=== PATIENT | male | born 1950 | race Two or more races ===

== ENCOUNTER → 2016-10-02 | Day surgery (SDC) | payer BC ==
[~2016-10-02] MED LIST: ASPIRIN81 M2 PO; CRESTOR5 MG PO; OMEPRAZOLE20 M1 PO; ZESTRIL10 M1 PO
--- NOTE | ~2016-10-02 | OR ---
Unit #: [id number] #: [id number] Patient: JOHNNY WALL [id number] [address] [place], [place] [address] [id number] O MR#: [id number] NAME: JOHNNY WALL ROOM: Date of Procedure: 10/02/2016 Admission Date: 10/02/2016 Surgeon: Terrence Aldrich M.D. : 1950 Attending Physician: Terrence Aldrich M.D. OPERATIVE REPORT PRIMARY CARE PHYSICIAN Jessica Galloway M.D. PREOPERATIVE DIAGNOSIS Colorectal cancer screening in an average-risk patient. PROCEDURES PERFORMED Colonoscopy and biopsy. POSTOPERATIVE DIAGNOSES 1. Single sessile polyp in the mid transverse colon. This was removed using cold biopsy forceps. It was about 4 to 5 mm in size. 2. Rest of the examination up to cecum and terminal ileum was normal. The quality of the prep was excellent. RECOMMENDATIONS Follow up the results of polyp histology and consider repeat colonoscopy in 5 years. SEDATION USED MAC. DESCRIPTION OF PROCEDURE Following detailed explanation of the potential risks and complications of a colonoscopy, namely perforation, bleeding, and complications related to sedation, the patient was brought to GI lab and laid in the left lateral decubitus position. A digital rectal examination was performed which was normal. Lubricated tip of the Olympus video colonoscope was inserted through the anus and advanced under direct vision. The scope was advanced past rectosigmoid into descending colon. No diverticula were noticed in this area. The scope tip was then navigated all the way up to cecum with visualization of the ileocecal valve and the appendiceal orifice. Preparation was excellent with good visualization and photodocumentation was obtained. Last few inches of the terminal ileum were also visualized after intubation of the ileocecal valve and appeared normal. Successive segments of the colonic mucosa were examined upon withdrawal. A single sessile polyp was noted in the mid transverse colon. This was about 5 mm in size. It was removed using cold biopsy forceps. The retrieved polyp fragments were then sent for histology. No additional polyps were found. The patient did not have any diverticulosis nor any hemorrhoids. The scope was then withdrawn. The patient returned to the recovery area. He tolerated the procedure without any postprocedure complications. Unit #: [id number] #: [id number] Patient: JOHNNY WALL Dictated by... Bhavya Jackson/ever TD: 10/03/2016 01:25 JOB #: [id number] CC: Jessica Galloway M.D. OPERATIVE REPORT Page 1 of 1 X Terrence Aldrich MD X PROCEDURE OPERATIVE NOTE
== END | disposition home or self-care (01) ==
LOC: COPS 13:22
PROVIDERS: Internal Medicine Gastroenterology
PROC: 0DBL8ZX Excision of Transverse Colon, Via Natural or Artificial Opening Endoscopic, Diagnostic (ICD-10-PCS; principal; 2016-10-02 14:30)
DX: Z12.11 Encounter for screening for malignant neoplasm of colon (principal); D12.3 Benign neoplasm of transverse colon; K21.9 Gastro-esophageal reflux disease without esophagitis; I10 Essential (primary) hypertension; E78.5 Hyperlipidemia, unspecified; Z79.899 Other long term (current) drug therapy; Z98.890 Other specified postprocedural states
CPT/HCPCS: 88305